=== PATIENT | male | born 1990 | race Caucasian/White ===

== ENCOUNTER 2016-07-29 22:32 | Emergency (ER) | payer OTHER ==
[~2016-07-29] VITALS: Ht 160 cm; Wt 7.2 kg
[2016-07-29] MEDS ORDERED: ALPR0.255 PO (22:41)
[2016-07-29] MEDS ORDERED: KETOROLAC TROMETHAMINE 30 MG/ML VIAL IM ONE (23:45)
[2016-07-29] MEDS ORDERED: LIDOCAINE HCL BUFFERED 1% 20 ML VIAL INJ ONE (23:45)
[2016-07-30 00:47] VITALS: BP 117/82
== END 2016-07-30 01:18 | disposition home or self-care (01) ==
LOC: EMS 22:36
DX: S01.112A Laceration without foreign body of left eyelid and periocular area, initial encounter (principal); Y04.2XXA Assault by strike against or bumped into by another person, initial encounter; Y93.89 Activity, other specified; Y92.89 Other specified places as the place of occurrence of the external cause; Y99.8 Other external cause status
CPT/HCPCS: 12011; 96372; 99283; J1885; J3490; 99284